=== PATIENT | male | born 1990 | race Caucasian/White ===

== ENCOUNTER 2017-05-07 15:51 | Emergency (ER) | payer MEDICAID, OTHER ==
[~2017-05-07] VITALS: Ht 190.5 cm; Wt 73.6 kg
[~2017-05-07 15:51] MED LIST: AMOX1TAB10 PO
[2017-05-07 15:56] VITALS: Ht 190.5 cm; Wt 73.6 kg
[2017-05-07] MEDS ORDERED: IBUPROFEN 800 MG TAB PO ONE (16:00)
[2017-05-07] MEDS ORDERED: IBUP-1542 PO (16:49)
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
== END 2017-05-07 17:40 | disposition home or self-care (01) ==
LOC: E/R 15:51
DX: S99.911A Unspecified injury of right ankle, initial encounter (principal); F17.210 Nicotine dependence, cigarettes, uncomplicated; S49.92XA Unspecified injury of left shoulder and upper arm, initial encounter; V43.72XA Person on outside of car injured in collision with other type car in traffic accident, initial encounter
CPT/HCPCS: 73030

== ENCOUNTER 2018-01-03 16:09 | Emergency (ER) | END 2018-01-03 16:58 | disposition home or self-care (01) ==